=== PATIENT | female | born 1980 | race Hispanic/Latino ===

== ENCOUNTER 2018-11-20 06:19 | Day surgery (SDC) | payer OTHER ==
[2018-11-19 16:08] VITALS: BP 170/95
[2018-11-19 16:34] LABS: BASOPHILS % (AUTO) 0.2 % (0.0-5.0); EOSINOPHILS % (AUTO) 1.7 % (0.0-8.0); HEMATOCRIT 41.7 % (36-48); MEAN CORPUSCULAR HEMOGLOBIN 26.5 pg (27.0-33.0); MEAN CORPUSCULAR VOLUME 80.5 fL (79-99); MONOCYTES % (AUTO) 8.2 % (3.0-13.0); NEUTROPHILS % (AUTO) 57.9 % (40.0-77.0); PLATELET COUNT (AUTO) 311 K/uL (130-400); RED BLOOD CELL COUNT(AUTO) 5.18 MIL/uL (4.00-5.50); RED CELL DISTRIBUTION WIDTH 15.8 % (11.0-15.5); WHITE BLOOD COUNT (AUTO) 8.4 K/uL (4.8-10.8)
[2018-11-20] VITALS (16 sets, daily range): BP systolic 132–159; BP diastolic 75–90
[~2018-11-20] VITALS: Ht 160 cm; Wt 139.9 kg
[~2018-11-20 06:19] MED LIST: CEFAZOLIN 3GM /D5W 100ML 100 ML IV SCH; IBUP-2077 PO
[2018-11-20] MEDS ORDERED: BUPIVACAINE/PF 0.25% 30ML VIAL IJ ONE (07:03)
[2018-11-20] MEDS ORDERED: CEFAZOLIN SODIUM 1 GM VIAL ONE (07:12)
[2018-11-20] MEDS ORDERED: LACTATED RINGERS 1000ML 1,000 ML IV ONE (07:12)
[2018-11-20] MEDS ORDERED: ONDANSETRON HCL 4 MG/2 ML VIAL ONE ×2 (08:14→10:26)
[2018-11-20] MEDS ORDERED: MIDAZOLAM HCL 1 MG/ML 2ML VIAL ONE (08:14)
[2018-11-20] MEDS ORDERED: LIDOCAINE PF 2% 5ML ABBOJECT ONE (08:19)
[2018-11-20] MEDS ORDERED: PROPOFOL 10 MG/ML 20ML VIAL IV ONE (08:19)
[2018-11-20] MEDS ORDERED: ROCURONIUM 10MG/1ML SYR 10 MG/ML ML ONE (08:20)
[2018-11-20] MEDS ORDERED: FENTANYL CITRATE PF 50 MCG/1 ML 5ML AMP IV ONE (08:53)
[2018-11-20] MEDS ORDERED: FUROSEMIDE 10 MG/ML 4ML VIAL ONE (09:39)
[2018-11-20] MEDS ORDERED: NEOSTIGMINE 5MG/5ML SYR IV ONE (09:39)
[2018-11-20] MEDS ORDERED: GLYCOPYRROLATE 0.2 MG/ML 5 ML VIAL ONE (09:41)
[2018-11-20] MEDS ORDERED: MEPERIDINE-PF 25 MG/ML SYG ONE ×2 (10:10→10:19)
--- NOTE | 2018-11-20 10:50 | NUR ---
Pt admit to day room 4 PT Oriented to self. Pt states she feels a generalized OB pad with scant stain of blood noted. Pt states feeling minimal nausea. Dermabond noted to incision sites to abd. Assessment completed. Pt assisted off bedpan. Will continue to monitor.
--- NOTE | 2018-11-20 11:40 | NUR ---
Pt assisted to restroom Pt assisted to restroom with spouse. PT able to void with no difficulty.
--- NOTE | 2018-11-20 12:20 | NUR ---
Pt dc home PT [id number] at this time. Spouse at bedtime. Pt aware of f/u appt with MD Dennis on 12/04/18 at 9am. Pt given education on prescribed medication (Ibuprofen/Colace). Pt states with minimal nausea. Advised not to eat a heavy meal and to get some rest at home. Advised she would have minimal vaginal discharged. Pt aware if any excess nausea and or excess vaginal bleeding for her to come back to the hospital. All questions and concerns answered. DC via wheelchair.
== END 2018-11-20 12:20 | disposition home or self-care (01) ==
LOC: DAH 06:19
PROVIDERS: ATTEND Obstetrics & Gynecology
DX: N83.8 Other noninflammatory disorders of ovary, fallopian tube and broad ligament (principal); E66.01 Morbid (severe) obesity due to excess calories; I10 Essential (primary) hypertension
CPT/HCPCS: 36415; 58662; 84703; 85025; 86850; 86900; 86901; 88305; A4218; A4344; A4600; A4649 ×3; A4930; C1769 ×4; G0168; J0690; J2001; J2175 ×2; J2250; J2405 ×2; J2704; J2710; J3010; J3490 ×2; J7030; J7120; J1940